=== PATIENT | male | born 1960 | race African-American/Black ===

== ENCOUNTER 2024-11-23 22:05 | Observation (INO) | payer MEDICARE, SELFPAY ==
--- NOTE | 2024-11-23 22:01 | ECG_ITS ---
APPROVED REPORT Exam: Resting ECG HR:40 bpm ECG Measurements Heart Rate 40 AXES DE 167 P 65 QRSd 170 QRS 268 QT 489 T 64 QTc 421 Conclusion SINUS BRADYCARDIA RIGHT AXIS DEVIATION [QRS AXIS > 100] RIGHT BUNDLE BRANCH BLOCK [120+ ms QRS DURATION, UPRIGHT V1, 40+ ms S IN I/aVL/V4/V5/V6] Sinus bradycardia with right bundle branch block with concave ST elevation in inferior leads Electronically signed by : DESMOND SANTIZO, 11/25/2024 21:35:12
[2024-11-23 22:05] VITALS: BP 92/52; PULSE 39; RESP 20; TEMP 36.4; O2SAT 99; BMI 19.8
--- NOTE | 2024-11-23 22:06 | CT_ITS ---
PROCEDURE INFORMATION: Exam: CT Head Without Contrast Exam date and time: 11/23/2024 10:22 PM Age: 64 years old Clinical indication: Injury or trauma; Fall; Additional info: Prev brain mass, bradycardic TECHNIQUE: Imaging protocol: Computed tomography of the head without contrast. Radiation optimization: All CT scans at this facility use at least one of these dose optimization techniques: automated exposure control; mA and/or kV adjustment per patient size (includes targeted exams where dose is matched to clinical indication); or iterative reconstruction. COMPARISON: CT CERVICAL SPINE WO CON 11/23/2024 10:22 PM FINDINGS: Brain: There is no evidence of intracranial hemorrhage. There are no areas of mass effect edema or midline shift. There is a small focal area encephalomalacia left parietal lobe adjacent to a craniotomy site secondary to old insult or prior surgery. There are no other focal abnormalities detected. Main of the cortical sulci are unremarkable. There are vague areas of decreased attenuation in the periventricular white matter consistent with chronic microvascular changes. Cerebral ventricles: Unremarkable for age. Paranasal sinuses: Visualized sinuses are unremarkable. No fluid levels. Mastoid air cells: Visualized mastoid air cells are well aerated. Bones: There is a craniotomy defect along the left parietal bone stabilized by multiple cortical plates.. No acute fracture. Soft tissues: Unremarkable. IMPRESSION: No acute intracranial abnormalities.
--- NOTE | 2024-11-23 22:07 | CT_ITS ---
PROCEDURE INFORMATION: Exam: CT Cervical Spine Without Contrast Exam date and time: 11/23/2024 10:22 PM Age: 64 years old Clinical indication: Injury or trauma; Additional info: Fall TECHNIQUE: Imaging protocol: Computed tomography of the cervical spine without contrast. Radiation optimization: All CT scans at this facility use at least one of these dose optimization techniques: automated exposure control; mA and/or kV adjustment per patient size (includes targeted exams where dose is matched to clinical indication); or iterative reconstruction. COMPARISON: CT HEAD/BRAIN WO CON 11/23/2024 10:22 PM FINDINGS: Bones: Cervical curvature and alignment is unremarkable. There are moderate multilevel degenerative changes mid-lower cervical spine with disc space narrowing, endplate sclerosis and osteophytic lipping resulting in moderate multilevel spinal and foraminal stenosis extending from C3-C4 through C6-C7. The left facet joints at C4-C5 are fused. No evidence of fracture, facet subluxation or traumatic spondylolisthesis. Lungs: Lung apices are normal. Soft tissues: No prevertebral or paraspinal soft tissue swelling. IMPRESSION: Multilevel degenerative changes mid lower cervical spine. No acute bony abnormalities..
--- NOTE | 2024-11-23 22:08 | ED_ITS ---
Discharge Plan Disposition Chief Complaint: Head Injury Referrals Follow up/Referrals: Provider,Referral, [Primary Care Provider] - See instructions Clinical Impressions Clinical Impression: Symptomatic bradycardia, Creatinine elevation, Syncope Print Language Print Language: Maori Discharge ED Provider: Jae Woodard General Adult HPI General Chief complaint: Head Injury Stated complaint: fall, LOC+ Time Seen by Provider: 11/23/24 22:07 History of Present Illness HPI narrative: Patient is a 64-year-old male with past medical history of intracranial mass status post resection over a year ago [facility], high blood pressure on multiple medications, drinks daily presents emergency department after passing out. Patient was witnessed in his kitchen slumping down onto the floor from standing without significant trauma. C-spine precautions initiated in the field. No seizure-like activity reported. Patient does not remember passing out. He has not had this happen before. And route his fingerstick was nonactionable and he was noticed to be bradycardic and was transported here for continued evaluation. Patient is not complaining of any acute complaints at this time. Related Data Allergies Allergy/AdvReac Type Severity Reaction Status Date / Time No Known Allergies Allergy Verified 11/23/24 22:12 [facility] Disclaimer: The information contained in this section may have been updated after the patient was seen, as this information can be updated by other users. Social History Smoking Status: Current every day smoker alcohol intake: current current occupational status: other Travel in the last 8 weeks: None ROS Obtained: Yes Systems reviewed as appropriate & no additional complaints except as documented Physical Exam General General appearance: alert and in no apparent distress Head Head exam: atraumatic and normocephalic Eye Eye exam: Present PERRL ENT ENT exam: Present mucous membranes moist Neck Neck exam: Present normal inspection; Absent tenderness Chest Chest inspection: Present normal inspection and symmetric chest wall rise Respiratory Respiratory exam: Present normal lung sounds bilaterally; Absent respiratory distress Cardiovascular Cardiovascular exam: Present normal rhythm and bradycardia Abdominal Exam Abdominal exam: Present soft; Absent tenderness Extremities Exam Extremities exam: Present normal inspection Neurological Exam Neurological exam: Present alert and CN II-XII intact; Absent motor sensory deficit Psychiatric Psychiatric exam: Present normal affect Skin Skin exam: Present warm and dry Medical Decision Making Medical Records Screening: Per USPSTF and CDC recommendations, given the prevalence of disease in our region, it is our hospital?s policy to screen for HIV and viral Hepatitis for all patients aged 18 and over and those with ongoing risk factors. Jaxon Inquiry Pt receiving controlled substance: No Vital Signs: 11/23/24 22:05 Temperature 97.6 F Temperature Source Oral Pulse Rate [Apical] 39 L Respiratory Rate 20 Blood Pressure [Right Arm] 92/52 L Blood Pressure Mean [Right Arm] 65 02 Sat by Pulse Oximetry 99 Oxygen Delivery Method Room Air Lab Data Lab Results 11/23/24 22:05: WBC 5.3, RBC 3.83 L, Hgb 12.5 L, Hct 36.4 L, MCV 95.0 H, MCH 32.6 H, MCHC 34.3, RDW 12.3, Plt Count 156, MPV 10.8 H, Neut % (Auto) 44.6, Lymph % (Auto) 44.0, [place] % (Auto) 7.4, Eos % (Auto) 3.0, Baso % (Auto) 0.8, Neut # (Auto) 2.4, Lymph # (Auto) 2.3, [place]eth # (Auto) 0.4, Eos # (Auto) 0.2, Baso # (Auto) 0.0, Sodium 138, Potassium 4.1, Chloride 98, Carbon Dioxide 28, Anion Gap 16.1 H, BUN 15, Creatinine 1.50 H, Estimated Creat Clear 47, Estimated GFR 47 L, Est GFR ( Amer) 57 L, Glucose 110 H, Calcium 8.4, Magnesium 1.8, Total Bilirubin 1.1, AST 37, ALT 19, Alkaline Phosphatase 47, Troponin I < 0.01, Total Protein 6.8, Albumin 4.2, Globulin 2.6, Albumin/Globulin Ratio 1.6, TSH 6.74 H, Free T4 1.29, Plasma/Serum Alcohol 149 H 11/23/24 22:05 11/23/24 22:05 Orders (Tests/Meds): ORDERS Category Date Time Status CT cervical spine wo con Stat Cat Scan 11/23/24 22:[address] head/brain wo con Stat Cat Scan 11/23/24 22:06 Completed CBC w/Auto Diff [Complete Blood Count Auto Diff] Stat Lab 11/23/24 22:05 Completed CMP [Comprehensive Metabolic Panel] Stat Lab 11/23/24 22:05 Completed Ethanol [Ethyl Alcohol] Stat Lab 11/23/24 22:05 Completed Free T4 (Free Thyroxine) Stat Lab 11/23/24 22:05 Completed MG [Magnesium] Stat Lab 11/23/24 22:05 Completed TSH [Thyroid Stimulating Hormone] Stat Lab 11/23/24 22:05 Completed Trop I [Troponin I] Stat Lab 11/23/24 22:05 Completed Troponin I Q3H Lab 11/24/24 01:15 Ordered Troponin I Q3H Lab 11/24/24 04:15 Ordered ECG Data Tracing #1: Independently interpreted by me rate is 40, rhythm is regular, axis is rightward deviated, sinus bradycardia with right bundle branch block, no excessive discordance. QTc 421. HEART Score History (anamnesis): Slightly suspicious ECG: Non-specific disturbance Age: >65 years Risk factors: 1-2 risk factors Troponin: </= normal limit HEART Score: 4 Medical Decision Narrative: In summary patient is 64-year-old male past medical history described above presents emergency department for evaluation of syncope and trauma. Patient is hemodynamically tenuous upon arrival, bradycardic, soft blood pressures 90s over 50s without true hypotension. Patient appears to be sinus bradycardia with a bundle branch block with intermittent PVCs on EKG at bedside. Patient will be placed on the ZOLL. No significant trauma based on history I suspect he has symptomatic bradycardia. For trauma noncontrasted CT scan of the head cervical spine will be obtained given that differential includes fracture and intracranial hemorrhage. Hematologic labs will be obtained. Crystalloid bolus administered after [id number] ultrasound at bedside shows normal ejection fraction (images were not saved to apartment archive therefore no note is warranted). Initial hematologic labs reviewed by me, no significant leukocytosis, no actionable anemia, elevated creatinine with unknown baseline that is being volume resuscitated initial troponin undetectably low, serum alcohol 149. Noncontrasted CT scan of the head informally visualized by me no acute large intracranial hemorrhage. Patient's medications were obtained, he is on propranolol, losartan, amlodipine. Patient's blood pressure and proved with crystalloid resuscitation. I do not think that patient has septic given that he has no fever no significant leukocytosis therefore broad-spectrum antibiotics were considered but will be deferred. I suspect that patient has symptomatic bradycardia and is on multiple antihypertensives and a beta-saeid which may require adjusting. Given this the case discussed with hospital medicine regarding management patient be admitted to their service for continued evaluation at this time. Critical Care Critical Care Time Critical Care Time: Yes Attestation: On 11/23/24, the high probability of a clinically significant, sudden or life threatening deterioration of the following system(s) required my full and direct attention, intervention and personal management. The time I documented below is in addition to time spent performing reported procedures but includes the following listed in this critical care notation. Total Time Total Critical Care Time: 35
--- NOTE | 2024-11-23 22:17 | PC.NURSE ---
Pt to CT scan via stretcher
[2024-11-23 22:21] LABS: Albumin Level 4.2 g/dl (3.5-5.0); Chloride 98 mmol/L (98-107); Sodium 138 mmol/L (136-145)
[2024-11-23 22:22] LABS: Potassium 4.1 mmoL/L (3.5-5.1)
[2024-11-23 22:23] LABS: Basophils % 0.8 % (0.1-2.0); Eosinophils # 0.2 K/mm3 (0.0-0.4); Hematocrit 36.4 % (42.0-52.0); Hemoglobin 12.5 g/dL (14.1-18.0); Lymphocytes # 2.3 K/mm3 (0.7-4.5); Mean Corpuscular HGB Conc 34.3 g/dL (31.8-35.4); Mean Corpuscular Hemoglobin 32.6 pg (27.0-31.2); Mean Platelet Volume 10.8 fl (7.4-10.4); Monocytes # 0.4 K/mm3 (0.1-1.0); Monocytes % 7.4 % (1.7-9.3); Neutrophils # 2.4 K/mm3 (1.8-7.8); Neutrophils % 44.6 % (37.0-80.0); Platelet Count 156 K/mm3 (142-424); Red Blood Count 3.83 M/mm3 (4.60-6.20); Red Cell Distribution Width 12.3 % (11.5-17.5); White Blood Count 5.3 K/mm3 (4.8-10.8)
[2024-11-23 22:24] LABS: Alanine Aminotransferase 19 U/L (12-78); Anion Gap 16.1 mEq/L (5-15); Aspartate Amino Transferase 37 U/L (17-59); Blood Urea Nitrogen 15 mg/dl (9-20); Carbon Dioxide 28 mmol/L (22.0-30.0); Creatinine Clearance Estimated 47 mL/min (50-200); Estimated Glomerular Filt Rate 47 ml/min (>60); Ethyl Alcohol 149 mg/dl (0-10); GFR (African American) 57 ML/MIN (>60)
[2024-11-23 22:25] LABS: Albumin/Globulin Ratio 1.6 (1.1-1.8); Alkaline Phosphatase 47 U/L (38-126); Bilirubin,Total 1.1 mg/dl (0.2-1.3); Calcium 8.4 mg/dl (8.4-10.2); Globulin 2.6 g/dL (1.3-3.2); Glucose 110 mg/dl (74-100); Magnesium 1.8 mg/dl (1.6-2.3); Total Protein,Serum 6.8 g/dl (6.3-8.2)
[2024-11-23 22:31] VITALS: BP 122/73; PULSE 42; RESP 14; O2SAT 95
[2024-11-23 22:43] LABS: Troponin I < 0.01 ng/ml (0.00-0.034)
[2024-11-23 22:49] LABS: Free T4 (Free Thyroxine) 1.29 ng/dl (0.78-2.19)
[2024-11-23 23:00] VITALS: BP 126/79; PULSE 58; RESP 14; O2SAT 96
[2024-11-23 23:01] LABS: Thyroid Stimulating Hormone 6.74 uIU/mL (0.465-4.68)
[2024-11-23 23:30] VITALS: BP 111/72; PULSE 49; RESP 14; O2SAT 94
[2024-11-24] VITALS (12 sets, daily range): BP systolic 107–169; BP diastolic 61–98; PULSE 50–78; RESP 16–20; TEMP 36.6–37.1; O2SAT 92–97; BMI 19.8; BMI 21.7
[2024-11-24] MEDS: LACTATED RINGERS 1000ML 1,000 ML 50 ML IV (00:42)
--- NOTE | 2024-11-24 00:53 | PC.NURSE ---
pt arrived to floor from ed via stretcher at 0035.
[2024-11-24 01:14] LABS: Troponin I < 0.01 ng/ml (0.00-0.034)
--- NOTE | 2024-11-24 01:30 | PC.NURSE ---
Unable to complete med rec. Meds not available, went home and pt not aware of his med regimen. Requested bring meds tomorrow
--- NOTE | 2024-11-24 04:36 | P.HP_ITS ---
History of Present Illness *Admission Date: 11/23/24 *Reason for visit:: Syncope *History of present illness: A 64-year-old male with a past medical history of benign intracranial mass status post resection over a year ago at the [facility] and hypertension managed with propranolol, losartan, and amlodipine, presents to the emergency department after an episode of syncope. The event occurred in his kitchen, where he was witnessed slumping to the floor from a standing position without any significant trauma or seizure-like activity. The patient does not recall the event and reports no prior similar episodes. C-spine precautions were initiated in the field. En route, he was found to be bradycardic with nonactionable fingerstick glucose. He denies chest pain, shortness of breath, dizziness, or any other acute complaints at the time of evaluation. Upon arrival, the patient was hemodynamically tenuous, with bradycardia, soft blood pressures in the 90s/50s, and no signs of true hypotension. Initial bedside EKG showed sinus bradycardia with a bundle branch block and intermittent premature ventricular contractions (PVCs). Thcnw-ej-uxie ultrasound demonstrated normal ejection fraction. Labs revealed no significant leukocytosis, mild anemia (Hgb 12.5), elevated crea tinine (1.50) with an estimated GFR of 47, and a serum alcohol level of 149. Troponin levels were undetectable, and TSH was elevated at 6.74, with a normal free T4 of 1.29. Noncontrasted CT scans of the head and cervical spine showed no acute intracranial hemorrhage or fractures. The patient?s presentation of syncope with bradycardia is likely multifactorial, potentially related to his multiple antihypertensives, including a beta-saeid. After crystalloid resuscitation, his blood pressure improved. He denies symptoms suggestive of sepsis or infection, and no antibiotics were initiated. Patient is a moderately poor historian but states he does follow-up regularly with PCP and low heart rate has been an issue in the past. Given his persistent bradycardia and history, admission to the hospitalist service was arranged for further evaluation and management. [facility] Disclaimer: The information contained in this section may have been updated after the patient was seen, as this information can be updated by other users. Medical History (Updated 11/24/24 @ 15:46 by Dariusz Schulte MD) FH: bilateral hip replacements Bradycardia Hypertension History of intracranial mass Family History Other No significant family history Social History Smoking Status: Current every day smoker alcohol intake: current current occupational status: other Travel in the last 8 weeks: None Have you lived/traveled outside [place] in past 30 days?: No Contact w/someone who lives/traveled outside US past 30 days?: No Exposure to someone with infectious disease in past 14 days?: No Do you have a fever (greater than 100.4 F or 38 C)?: No Have you tested positive for COVID-19: No Exposed to someone with COVID-19 in past 14 days?: No Do you have a sore throat?: No Do you have a cough?: No Do you have any weakness?: No Are you experiencing any nausea/vomitting?: No Do you have any diarrhea?: No Are you experiencing any unusual bleeding?: No Do you have any muscle aches/pain?: Yes Do you have any abdominal pain?: No Are you experiencing loss of taste or smell?: No Other Medical History Have you received the Flu Vaccine for this season: Yes Have you received the Pneumonia Vaccine: No Review of Systems Review of Systems Review of systems (narrative): 14 point review of systems negative outside [facility] Meds Home Medications and Allergies Home Medications ?Medication ?Instructions ?Recorded ?Confirmed ?Type amlodipine 10 mg tablet 10 mg PO DAILY 11/24/24 11/24/24 History losartan 100 mg tablet 100 mg PO DAILY 11/24/24 11/24/24 History propranolol 60 mg capsule,24 60 mg PO DAILY 11/24/24 11/24/24 History hr,extended release rosuvastatin 10 mg tablet 10 mg PO HS 11/24/24 11/24/24 History terazosin 10 mg capsule 10 mg PO DAILY 11/24/24 11/24/24 History valacyclovir 1 gram tablet 1,000 mg PO DAILY 11/24/24 11/24/24 History New Prescriptions to Start Prescriptions: Allergies Allergy/AdvReac Type Severity Reaction Status Date / Time No Known Allergies Allergy Verified 11/23/24 22:12 Exam Data for Last 24 hours Vital signs and Labs for Last 24 Hours: Temp Pulse Resp BP Pulse Ox O2 Del Method 98.2 F 60 16 125/76 95 Room Air 11/24/24 00:40 11/24/24 01:01 11/24/24 00:40 11/24/24 01:00 11/24/24 01:00 11/24/24 01:00 Laboratory Results - last 24 hr 11/23/24 22:05: WBC 5.3, RBC 3.83 L, Hgb 12.5 L, Hct 36.4 L, MCV 95.0 H, MCH 32.6 H, MCHC 34.3, RDW 12.3, Plt Count 156, MPV 10.8 H, Neut % (Auto) 44.6, Lymph % (Auto) 44.0, [place] % (Auto) 7.4, Eos % (Auto) 3.0, Baso % (Auto) 0.8, Neut # (Auto) 2.4, Lymph # (Auto) 2.3, Beaver # (Auto) 0.4, Eos # (Auto) 0.2, Baso # (Auto) 0.0, Sodium 138, Potassium 4.1, Chloride 98, Carbon Dioxide 28, Anion Gap 16.1 H, BUN 15, Creatinine 1.50 H, Estimated Creat Clear 47, Estimated GFR 47 L, Est GFR ( Amer) 57 L, Glucose 110 H, Calcium 8.4, Magnesium 1.8, Total Bilirubin 1.1, AST 37, ALT 19, Alkaline Phosphatase 47, Troponin I < 0.01, Total Protein 6.8, Albumin 4.2, Globulin 2.6, Albumin/Globulin Ratio 1.6, TSH 6.74 H, Free T4 1.29, Plasma/Serum Alcohol 149 H 11/24/24 00:45: PT 11.0, INR 1.00, Troponin I < 0.01 I & O for Last 24 hours: Intake & Output 11/21/24 11/22/24 11/23/24 11/24/24 23:59 23:59 23:59 23:59 Output Total 650 / 650 Balance -650 / -650 Weight 68.039 kg 74.435 kg Constitutional Constitutional: no acute distress *Routine HEENT Exam Head: Present normocephalic Eye: Present EOMI and PERRL ENT: Present mucous membranes moist *Routine Neck Exam Neck: Present supple; Absent lymphadenopathy *Routine Respiratory Exam Respiratory: Present CTA bilaterally *Routine Cardiovascular Exam Cardiovascular: Present RRR *Routine Abdominal Exam Abdominal: Present soft and normoactive bowel sounds; Absent tenderness *Routine Rectal Exam Rectal:: deferred *Routine Genitalia Exam Genitalia:: deferred *Routine Extremities Exam Extremities: Absent cyanosis, clubbing or edema *Routine Skin Exam Skin: Present warm; Absent rash *Routine Neurological Exam Neurological: Present alert and oriented X3 Assessment and Plan *Assessment and plan (1) Syncope: Status: Acute Qualifiers: Encounter type: initial encounter Category: Medical Code(s): R55 - Syncope and collapse (2) Creatinine elevation: Status: Acute Category: Medical (3) Symptomatic bradycardia: Status: Acute Category: Medical Code(s): R00.1 - Bradycardia, unspecified (4) Hypotension: Status: Acute Qualifiers: Hypotension type: unspecified hypotension type Qualified Code(s): I95.9 - Hypotension, unspecified Category: Medical Code(s): I95.9 - Hypotension, unspecified (5) CKD stage 3a, GFR 45-59 ml/min: Status: Acute Category: Medical Code(s): N18.31 - Chronic kidney disease, stage 3a (6) Hypertension: Status: Chronic Category: Medical Code(s): I10 - Essential (primary) hypertension Plan Medical decision making: This 64-year-old male with a history of benign intracranial mass resection and hypertension on multiple antihypertensive medications, including propranolol, losartan, and amlodipine, presents with a witnessed syncopal episode. His initial evaluation revealed symptomatic bradycardia with soft blood pressures, sinus bradycardia with a bundle branch block and PVCs on EKG, and an elevated serum alcohol level. Pnxbo-ls-ignt ultrasound showed normal ejection fraction, and noncontrasted CT imaging of the head and cervical spine showed no acute abnormalities. Lab results indicated mild anemia, elevated creatinine likely due to hypovolemia, and an elevated TSH without overt hypothyroid symptoms. The etiology of his syncope is likely multifactorial, with contributions from medication-induced bradycardia and possible volume depletion. Broad-spectrum antibiotics were deferred given the absence of infection markers. Admission is warranted for continued monitoring, evaluation, and optimization of his antihypertensive regimen to prevent further syncopal events. 1. Symptomatic Bradycardia (ICD-10: R00.1): * Admit for cardiac telemetry to monitor rhythm and assess for persistent bradycardia or other arrhythmias. * Hold propranolol and re-evaluate the patient?s need for beta-saeid therapy. * Monitor blood pressure and heart rate closely. Adjust antihypertensive therapy as needed. * Consider cardiology consultation to evaluate for potential pacemaker placement if bradycardia persists or becomes symptomatic. * Educate the patient on recognizing symptoms of bradycardia, including dizziness, fatigue, and syncope, and the importance of adherence to follow-up care. 2. Syncope (ICD-10: R55): * Likely multifactorial due to bradycardia, antihypertensive therapy, and possible mild volume depletion. * Continue monitoring for recurrence of syncope during admission. * Encourage adequate oral hydration to address possible mild hypovolemia. * orthostatic vital signs to rule out postural hypotension as a contributing factor. 3. Hypertension - On Multiple Antihypertensives (ICD-10: I10): * Hold propranolol and assess the need to adjust or simplify the patient?s antihypertensive regimen to prevent further bradycardia and hypotension. * Reassess blood pressure control during hospitalization and avoid overly aggressive management given his history of syncope. * Discuss medication adherence and follow-up with primary care for long-term blood pressure management. 4. Chronic Alcohol Use (ICD-10: F10.20): * Address elevated serum alcohol level (149) as a potential contributor to syncope via volume depletion or vasodilation. * Provide brief counseling on the risks of daily alcohol consumption and recommend moderation. * Screen for alcohol withdrawal symptoms during hospitalization and provide appropriate intervention if needed. * Urine drug screen 5. Chronic Kidney Disease (CKD) Stage 3a (ICD-10: N18.31):( Versus CHINO) * Elevated creatinine (1.50) with an estimated GFR of 47 suggests underlying CKD. Likely exacerbated by possible mild hypovolemia. * Ensure adequate hydration to avoid further renal compromise while carefully monitoring for fluid overload. * Repeat renal function labs to assess response to resuscitation. 6. Elevated TSH with Normal Free T4 (Subclinical Hypothyroidism) (ICD-10: E03.9): * TSH 6.74 with normal free T4 does not currently require treatment unless symptomatic. * Monitor TSH levels and reassess thyroid function as an outpatient. * Safety Clothing And Equipment Developer the patient on potential symptoms of hypothyroidism to monitor for. 7. History of Intracranial Mass Resection (ICD-10: Z85.841): * Noncontrasted head CT showed no evidence of acute intracranial hemorrhage or other complications. * No specific intervention is needed related to his history at this time. Additional Notes: * Social work consultation may be helpful for assessing follow-up care and medication compliance. * Educate the patient on the importance of regular medical follow-up to prevent future complications. * VTE prophylaxis with SCDs, hold further anticoagulation at this time to rule out trauma as mechanism of injury Rounded on patient after nurse practitioner. Personally examined and interviewed patient. Agree with exam findings and care plan as documented.
--- NOTE | 2024-11-24 04:51 | EXP.ENTCONS ---
History of Present Illness *Admission Date: 11/23/24 *History of present illness: A 64-year-old male with a past medical history of benign intracranial mass status post resection over a year ago at the [facility] and hypertension managed with propranolol, losartan, and amlodipine, presents to the emergency department after an episode of syncope. The event occurred in his kitchen, where he was witnessed slumping to the floor from a standing position without any significant trauma or seizure-like activity. The patient does not recall the event and reports no prior similar episodes. C-spine precautions were initiated in the field. En route, he was found to be bradycardic with nonactionable fingerstick glucose. He denies chest pain, shortness of breath, dizziness, or any other acute complaints at the time of evaluation. Upon arrival, the patient was hemodynamically tenuous, with bradycardia, soft blood pressures in the 90s/50s, and no signs of true hypotension. Initial bedside EKG showed sinus bradycardia with a bundle branch block and intermittent premature ventricular contractions (PVCs). [id number] ultrasound demonstrated normal ejection fraction. Labs revealed no significant leukocytosis, mild anemia (Hgb 12.5), elevated creatinine (1.50) with an estimated GFR of 47, and a serum alcohol level of 149. Troponin levels were undetectable, and TSH was elevated at 6.74, with a normal free T4 of 1.29. Noncontrasted CT scans of the head and cervical spine showed no acute intracranial hemorrhage or fractures. The patient?s presentation of syncope with bradycardia is likely multifactorial, potentially related to his multiple antihypertensives, including a beta-saeid. After crystalloid resuscitation, his blood pressure improved. He denies symptoms suggestive of sepsis or infection, and no antibiotics were initiated. Patient is a moderately poor historian but states he does follow-up regularly with PCP and low heart rate has been an issue in the past. Given his persistent bradycardia and history, admission to the hospitalist service was arranged for further evaluation and management. [facility] Disclaimer: The information contained in this section may have been updated after the patient was seen, as this information can be updated by other users. Medical History (Updated 11/24/24 @ 04:43 by Royce Mohr APRN) FH: bilateral hip replacements Bradycardia Hypertension History of intracranial mass Family History Other No significant family history Social History Smoking Status: Current every day smoker alcohol intake: current current occupational status: other Travel in the last 8 weeks: None Have you lived/traveled outside US in past 30 days?: No Contact w/someone who lives/traveled outside US past 30 days?: No Exposure to someone with infectious disease in past 14 days?: No Do you have a fever (greater than 100.4 F or 38 C)?: No Have you tested positive for COVID-19: No Exposed to someone with COVID-19 in past 14 days?: No Do you have a sore throat?: No Do you have a cough?: No Do you have any weakness?: No Are you experiencing any nausea/vomitting?: No Do you have any diarrhea?: No Are you experiencing any unusual bleeding?: No Do you have any muscle aches/pain?: Yes Do you have any abdominal pain?: No Are you experiencing loss of taste or smell?: No Meds Home Medications and Allergies New Prescriptions to Start Prescriptions: Allergies Allergy/AdvReac Type Severity Reaction Status Date / Time No Known Allergies Allergy Verified 11/23/24 22:12 Results Labs 11/24/24 04:40 11/24/24 04:40 Labs: Abnormal lab results 11/23/24 Range/Units 22:05 RBC 3.83 L (4.60-6.20) M/mm3 Hgb 12.5 L (14.1-18.0) g/dL Hct 36.4 L (42.0-52.0) % MCV 95.0 H (80-94) fl MCH 32.6 H (27.0-31.2) pg MPV 10.8 H (7.4-10.4) fl Anion Gap 16.1 H (5-15) mEq/L Creatinine 1.50 H (0.66-1.25) mg/dl Estimated GFR 47 L (>60) ml/min Est GFR ( Amer) 57 L (>60) ML/MIN Glucose 110 H (74-100) mg/dl TSH 6.74 H (0.465-4.68) uIU/mL Plasma/Serum Alcohol 149 H (0-10) mg/dl H & H 11/23/24 Range/Units 22:05 Hgb 12.5 L (14.1-18.0) g/dL Hct 36.4 L (42.0-52.0) % Coagulation 11/24/24 Range/Units 00:45 INR 1.00 (0.9-1.1) All other labs normal.
[2024-11-24 05:02] LABS: Basophils % 0.4 % (0.1-2.0); Eosinophils # 0.1 K/mm3 (0.0-0.4); Eosinophils % 0.7 % (0.1-12.0); Hematocrit 34.6 % (42.0-52.0); Hemoglobin 11.9 g/dL (14.1-18.0); Lymphocytes # 1.5 K/mm3 (0.7-4.5); Lymphocytes % 22.5 % (10-50); Mean Corpuscular HGB Conc 34.4 g/dL (31.8-35.4); Mean Corpuscular Hemoglobin 31.8 pg (27.0-31.2); Mean Corpuscular Volume 92.5 fl (80-94); Mean Platelet Volume 11.2 fl (7.4-10.4); Monocytes # 0.5 K/mm3 (0.1-1.0); Monocytes % 6.7 % (1.7-9.3); Neutrophils # 4.6 K/mm3 (1.8-7.8); Neutrophils % 69.1 % (37.0-80.0); Platelet Count 145 K/mm3 (142-424); Red Blood Count 3.74 M/mm3 (4.60-6.20); Red Cell Distribution Width 12.2 % (11.5-17.5); White Blood Count 6.7 K/mm3 (4.8-10.8)
[2024-11-24 05:27] LABS: Hemoglobin A1C 5.9 % (4.0-6.0)
[2024-11-24 05:47] LABS: Troponin I < 0.01 ng/ml (0.00-0.034)
[2024-11-24 05:49] LABS: Chloride 103 mmol/L (98-107)
[2024-11-24 05:50] LABS: Potassium 3.8 mmoL/L (3.5-5.1); Sodium 137 mmol/L (136-145)
[2024-11-24 05:52] LABS: Anion Gap 13.8 mEq/L (5-15); Blood Urea Nitrogen 15 mg/dl (9-20); Carbon Dioxide 24 mmol/L (22.0-30.0); Creatinine Clearance Estimated 70 mL/min (50-200); Estimated Glomerular Filt Rate 67 ml/min (>60); GFR (African American) 81 ML/MIN (>60)
[2024-11-24 05:53] LABS: Calcium 8.4 mg/dl (8.4-10.2); Chol/HDL Ratio 2.6 (1-3.5); Cholesterol 107 mg/dl (140-200); Glucose 132 mg/dl (74-100); HDL Cholesterol 41 mg/dl (40-60); Magnesium 1.7 mg/dl (1.6-2.3); Triglycerides 121 mg/dl (30-150); VLDL Cholesterol 24 mg/dL (0-40)
[2024-11-24 06:42] LABS: Vitamin B12 817 pg/mL (239-931)
[2024-11-24] MEDS: THIAMINE 100MG TABLET 100 MG PO (08:59)
[2024-11-24] MEDS: MAGNESIUM OXIDE 400MG TABLET 800 MG PO (08:59)
[2024-11-24] MEDS: FOLIC ACID 1MG TABLET 1 MG PO (08:59)
--- NOTE | 2024-11-24 14:06 | PC.NURSE ---
Aox 4, up with assistance times one, bed alarm active, 90's on RA, 18g R AC SL, echo in am, consult cardiology, cardiac diet.
--- NOTE | 2024-11-24 15:47 | EXP.ACUTE.PN ---
Subjective *Date: 11/24/24 *Time: 18:13 Interval history: Patient feeling little better today. No longer dizzy. Heart rate remains in the 50s. Denies any chest pain or shortness of breath. Tolerating p.o. intake. Stable on room air Medical Exam Vital signs and Labs for Last 24 Hours: Vital Signs Temp Pulse Pulse Pulse Pulse Pulse Resp 11/24/24 14:16 11/24/24 12:17 11/24/24 12:00 70 11/24/24 11:52 98 F 64 17 11/24/24 10:29 11/24/24 08:33 11/24/24 08:00 70 11/24/24 08:00 63 62 78 11/24/24 08:00 11/24/24 06:55 11/24/24 05:22 56 L 11/24/24 05:00 11/24/24 04:00 98.4 F 75 16 11/24/24 03:00 11/24/24 01:01 60 11/24/24 01:00 64 50 L 70 11/24/24 01:00 11/24/24 00:40 64 16 11/24/24 00:40 98.2 F 57 L 20 11/24/24 00:08 57 L 20 11/23/24 23:30 49 L 14 11/23/24 23:00 58 L 14 11/23/24 22:31 42 L 14 11/23/24 22:05 97.6 F 39 L 20 BP BP BP BP BP Pulse Ox O2 Del Method 11/24/24 14:16 Room Air 11/24/24 12:17 Room Air 11/24/24 12:00 11/24/24 11:52 120/75 94 L 11/24/24 10:29 Room Air 11/24/24 08:33 Room Air 11/24/24 08:00 11/24/24 08:00 118/61 124/72 124/75 11/24/24 08:00 Room Air 11/24/24 06:55 Room Air 11/24/24 05:22 11/24/24 05:00 Room Air 11/24/24 04:00 129/70 92 L Room Air 11/24/24 03:00 Room Air 11/24/24 01:01 11/24/24 01:00 125/76 142/76 H 131/74 11/24/24 01:00 95 Room Air 11/24/24 00:40 125/76 95 Room Air 11/24/24 00:40 107/69 L Room Air 11/24/24 00:08 107/69 L 96 Room Air 11/23/24 23:30 111/72 94 L 11/23/24 23:00 126/79 96 11/23/24 22:31 122/73 95 11/23/24 22:05 92/52 L 99 Room Air Intake and Output 11/23/24 11/24/24 11/24/24 23:59 07:59 15:59 Intake Total 480 / 480 Output Total 650 / 1650 1000 / 1650 Balance -650 / -1170 -520 / -1170 Intake: Intake, Oral Amount 480 / 480 Output: Output, Urine Amount 650 / 1650 1000 / 1650 Other: Number of Unmeasured Voids 0 Weight 68.039 kg 74.435 kg Patient Weight 11/24/24 23:59 Weight 74.435 kg Laboratory Results - last 24 hr 11/23/24 22:05: WBC 5.3, RBC 3.83 L, Hgb 12.5 L, Hct 36.4 L, MCV 95.0 H, MCH 32.6 H, MCHC 34.3, RDW 12.3, Plt Count 156, MPV 10.8 H, Neut % (Auto) 44.6, Lymph % (Auto) 44.0, [place] % (Auto) 7.4, Eos % (Auto) 3.0, Baso % (Auto) 0.8, Neut # (Auto) 2.4, Lymph # (Auto) 2.3, [place] # (Auto) 0.4, Eos # (Auto) 0.2, Baso # (Auto) 0.0, Sodium 138, Potassium 4.1, Chloride 98, Carbon Dioxide 28, Anion Gap 16.1 H, BUN 15, Creatinine 1.50 H, Estimated Creat Clear 47, Estimated GFR 47 L, Est GFR ( Amer) 57 L, Glucose 110 H, Calcium 8.4, Magnesium 1.8, Total Bilirubin 1.1, AST 37, ALT 19, Alkaline Phosphatase 47, Troponin I < 0.01, Total Protein 6.8, Albumin 4.2, Globulin 2.6, Albumin/Globulin Ratio 1.6, TSH 6.74 H, Free T4 1.29, Plasma/Serum Alcohol 149 H 11/24/24 00:45: PT 11.0, INR 1.00, Troponin I < 0.01 11/24/24 04:40: WBC 6.7 D, RBC 3.74 L, Hgb 11.9 L, Hct 34.6 L, MCV 92.5, MCH 31.8 H, MCHC 34.4, RDW 12.2, Plt Count 145, MPV 11.2 H, Neut % (Auto) 69.1, Lymph % (Auto) 22.5, [place] % (Auto) 6.7, Eos % (Auto) 0.7, Baso % (Auto) 0.4, Neut # (Auto) 4.6, Lymph # (Auto) 1.5, [place] # (Auto) 0.5, Eos # (Auto) 0.1, Baso # (Auto) 0.0, Sodium 137, Potassium 3.8, Chloride 103, Carbon Dioxide 24, Anion Gap 13.8, BUN 15, Creatinine 1.10 D, Estimated Creat Clear 70, Estimated GFR 67, Est GFR ( Amer) 81 D, Glucose 132 H, Hemoglobin A1c 5.9, Calcium 8.4, Magnesium 1.7, Troponin I < 0.01, Triglycerides 121, Cholesterol 107 L, LDL Cholesterol Direct 38.60 L, VLDL Cholesterol 24, HDL Cholesterol 41, Cholesterol/HDL Ratio 2.6, Vitamin B12 817 I & O for Labs for Last 24 Hours: Intake & Output 11/21/24 11/22/24 11/23/24 11/24/24 23:59 23:59 23:59 23:59 Intake Total 480 / 480 Output Total 1650 / 1650 Balance -1170 / -1170 Weight 68.039 kg 74.435 kg Constitutional: Present no acute distress, average body habitus, chronically ill appearing and cooperative Head: Present atraumatic and normocephalic ENT: Present normal exam Respiratory: Present normal respiratory effort; Absent rhonchi, wheezes or crackles Cardiac: Present Reg Rate and Rhythm GI: Present soft and normal bowel sounds; Absent distention or tenderness Extremities: Present normal inspection and full ROM Skin: Present intact; Absent erythema Neuro: Present Grossly Intact, alert, awake, oriented x 3 and moves all extremities Assessment and Plan *Assessment and plan (1) Syncope: Status: Acute Qualifiers: Encounter type: initial encounter Category: Medical Code(s): R55 - Syncope and collapse (2) Creatinine elevation: Status: Acute Category: Medical (3) Symptomatic bradycardia: Status: Acute Category: Medical Code(s): R00.1 - Bradycardia, unspecified (4) Hypotension: Status: Acute Qualifiers: Hypotension type: unspecified hypotension type Qualified Code(s): I95.9 - Hypotension, unspecified Category: Medical Code(s): I95.9 - Hypotension, unspecified (5) CKD stage 3a, GFR 45-59 ml/min: Status: Acute Category: Medical Code(s): N18.31 - Chronic kidney disease, stage 3a (6) Hypertension: Status: Chronic Category: Medical Code(s): I10 - Essential (primary) hypertension Plan This 64-year-old male with a history of benign intracranial mass resection and hypertension on multiple antihypertensive medications, including propranolol, losartan, and amlodipine, presents with a witnessed syncopal episode. His initial evaluation revealed symptomatic bradycardia with soft blood pressures, sinus bradycardia with a bundle branch block and PVCs on EKG, and an elevated serum alcohol level. [id number] ultrasound showed normal ejection fraction, and noncontrasted CT imaging of the head and cervical spine showed no acute abnormalities. Lab results indicated mild anemia, elevated creatinine likely due to hypovolemia, and an elevated TSH without overt hypothyroid symptoms. The etiology of his syncope is likely multifactorial, with contributions from medication-induced bradycardia and possible volume depletion. Broad-spectrum antibiotics were deferred given the absence of infection markers. Admission is warranted for continued monitoring, evaluation, and optimization of his antihypertensive regimen to prevent further syncopal events. Plan for cardiology to see patient in the morning. Problems addressed as follows: Symptomatic Bradycardia Hypertension Syncope Hyperlipidemia -Patient's blood pressure doing well. Holding blood pressure meds this morning as he is normotensive. Remains bradycardic with heart rate in the 50s. Holding beta-saeid. Will resume irbesartan as formulary conversion at 150 mg tonight if blood pressure increases above 140/90. -Holding amlodipine 10 mg daily - Resume Crestor 10 mg nightly -Holding terazosin due to blood pressure impact -Echocardiogram ordered for the morning -Patient reports previously wearing Holter monitor with no events -White count normal at 6.7, hemoglobin 11.9. Chronic Alcohol Use -Alcohol level elevated to 140 on presentation. Suspect this is complicating factor with his syncope. Chronic Kidney Disease (CKD) Stage 3a -Creatinine 1.1 on presentation, BUN 15. Appears to be at his baseline. Potassium 3.8. Repeat CBC, CMP, magnesium ordered for the morning. Caution with nephrotoxins. Elevated TSH with Normal Free T4 (Subclinical Hypothyroidism) -TSH 6.74. Will initiate levothyroxine 25 mcg daily. Could be an underlying etiology of his bradycardia. History of Intracranial Mass Resection (ICD-10: Z85.841): - noncontrasted head CT showed no evidence of acute intracranial hemorrhage or other complications. - No specific intervention is needed related to his history at this time. PT and OT ordered to evaluate patient in the morning. Full code Cardiac diet
[2024-11-24] MEDS: MULTIVITAMIN TABLET 1 EACH PO (16:47)
[2024-11-24] MEDS: IRBESARTAN 150MG TAB 150 MG PO (20:37)
[2024-11-25] VITALS (9 sets, daily range): BP systolic 147–165; BP diastolic 72–95; PULSE 38–80; RESP 16–18; TEMP 36.7–36.9; O2SAT 95–98; BMI 21.4
--- NOTE | 2024-11-25 00:16 | CA_ITS ---
APPROVED REPORT EXAM: Comprehensive 2D, Doppler, and color-flow Echocardiogram Digital Marketing Assistant: Annie Terry RDCS Ht: 6 ft 1 in Wt: 150lbs BSA: 1.90 BP: 62/52 mmHg Indications: BRADYCARDIA,SYNCOPE BUBBLE STUDY DONE M-Mode Dimensions RVDd 2.74 cm (0.9-2.6) LA Diam 2.97 cm (1.9-4.0) LVDd 5.10 cm (3.5-5.7) LVDs 3.44 cm (3.5-5.7) IVSd 1.15 cm (0.6-1.1) PWd 1.26 cm (0.6-1.1) EF (Teich) 60.60% FS 32.50% EDV (Teich) 123.80 mL ESV (Teich) 48.80 mL LV Diastology E Decel Time 307 (160-240 msec) E/A Ratio 1.0 Mitral Valve MV E Max Jonathan. 58.0 (40-130 cm/s) MV A Velocity 60.0 (40-130 cm/s) E/A Ratio 0.98 MV PHT 90.0 ms Left Ventricle The left ventricle is normal size. The left ventricular systolic function is normal. The left ventricular ejection fraction is within the normal range. There is increased LV wall thickness. There is normal LV segmental wall motion. The left ventricular diastolic function is normal. LVEF is 60%. Right Ventricle Right ventricle is moderately dilated. Right ventricle is mildly hypokinetic. Atria The left atrium size is normal. The right atrium size is normal. There is a trabeculated echodensity at the roof of the right atrium, this likely represents Chiari network, but other etiologies cannot be entirely ruled out. The interatrial septum is aneurysmal. Color Doppler demonstrates positive left to right interatrial shunt. Agitated saline administration demonstrates presence interatrial shunt. Aortic Valve The aortic valve is mildly thickened. There is no aortic valvular stenosis. No aortic regurgitation is present. Mitral Valve The mitral valve is normal in structure. No evidence of mitral valve stenosis. Trace mitral regurgitation. Tricuspid Valve Tricuspid valve is grossly normal in structure and function. Trace tricuspid regurgitation. There is insufficient TR jet to estimate RVSP. Pulmonic Valve The pulmonary valve is normal in structure. Trace pulmonic regurgitation. Great Vessels The aortic root is normal in size. The pulmonary artery is normal. The ascending aorta is not well-visualized. Pericardium There is no pericardial effusion. Other Information Study Quality: Fair Conclusion Normal LV systolic function. Moderate RV dilation with mild reduction in RV function. There is a trabeculated echodensity at the roof of the right atrium, this likely represents Chiari network, but other etiologies cannot be entirely ruled out. Aneurysmal interatrial septum. Color Doppler demonstrates positive left to right interatrial shunt. Agitated saline administration demonstrates presence interatrial shunt. No significant valvular stenosis or regurgitation. In the setting of presence of interatrial shunt and RV dysfunction, further evaluation with ARIANA and cardiac MRI (cardiomyopathy protocol) is suggested on an outpatient basis. Electronically signed by : Jennifer Mooney MD 11/25/2024 10:59:22
--- NOTE | 2024-11-25 01:38 | ECG_ITS ---
APPROVED REPORT Exam: Resting ECG HR:54 bpm ECG Measurements Heart Rate 54 AXES MT 164 P 85 QRSd 155 QRS 263 QT 391 T 72 QTc 377 Conclusion SINUS BRADYCARDIA WITH FREQUENT VENTRICULAR PREMATURE COMPLEXES RIGHT BUNDLE BRANCH BLOCK [120+ ms QRS DURATION, UPRIGHT V1, 40+ ms S IN I/aVL/V4/V5/V6] LEFT POSTERIOR FASCICULAR BLOCK [QRS AXIS > 109, INFERIOR Q] ABNORMAL ECG UNCONFIRMED REPORT Electronically signed by : Mesfin Quiroz MD 11/25/2024 08:58:28
--- NOTE | 2024-11-25 04:05 | PC.NURSE ---
Pt is A/O X 4. He has denied dizziness, pain or SOA throughout shift. Pt tolerating diet . Pt remains on telemetry with continued bradycardia. EKG done which showed pt in Atrial Bigeminy , BBB with occasional PVCs. Yaneth Mohr NP aware. Pt remained asymptomatic. Plans for ECHO on 11/25 Voiding well , LBM on 11/24
[2024-11-25 07:30] LABS: Basophils % 0.5 % (0.1-2.0); Eosinophils # 0.2 K/mm3 (0.0-0.4); Eosinophils % 2.6 % (0.1-12.0); Hematocrit 37.7 % (42.0-52.0); Hemoglobin 13.1 g/dL (14.1-18.0); Lymphocytes # 1.9 K/mm3 (0.7-4.5); Lymphocytes % 30.5 % (10-50); Mean Corpuscular HGB Conc 34.7 g/dL (31.8-35.4); Mean Corpuscular Hemoglobin 31.9 pg (27.0-31.2); Mean Corpuscular Volume 91.7 fl (80-94); Mean Platelet Volume 10.7 fl (7.4-10.4); Monocytes # 0.6 K/mm3 (0.1-1.0); Monocytes % 10.3 % (1.7-9.3); Neutrophils # 3.4 K/mm3 (1.8-7.8); Neutrophils % 55.9 % (37.0-80.0); Platelet Count 142 K/mm3 (142-424); Red Blood Count 4.11 M/mm3 (4.60-6.20); Red Cell Distribution Width 12.2 % (11.5-17.5); White Blood Count 6.1 K/mm3 (4.8-10.8)
[2024-11-25 07:47] LABS: Chloride 102 mmol/L (98-107); Potassium 4.1 mmoL/L (3.5-5.1); Sodium 137 mmol/L (136-145)
[2024-11-25 07:50] LABS: Anion Gap 11.1 mEq/L (5-15); Blood Urea Nitrogen 12 mg/dl (9-20); Carbon Dioxide 28 mmol/L (22.0-30.0); Creatinine Clearance Estimated 75 mL/min (50-200); Estimated Glomerular Filt Rate 97 ml/min (>60); GFR (African American) 117 ML/MIN (>60)
[2024-11-25 07:51] LABS: Calcium 8.5 mg/dl (8.4-10.2); Glucose 100 mg/dl (74-100)
[2024-11-25] MEDS: MAGNESIUM OXIDE 400MG TABLET 800 MG PO (08:52)
[2024-11-25] MEDS: LEVOTHYROXINE 25MCG (0.025MG) TAB 25 MCG PO (08:52)
[2024-11-25] MEDS: FOLIC ACID 1MG TABLET 1 MG PO (08:52)
[2024-11-25] MEDS: THIAMINE 100MG TABLET 100 MG PO (08:52)
--- NOTE | 2024-11-25 09:47 | EXP.CARD.CON ---
History of Present Illness History of Present Illness Consult date: 11/25/24 Requesting physician: Dariusz Schulte Chief complaint: Syncope, recurrent Additional Medical History:: 1. Recurrent syncope of unknown etiology -3 episodes over several years (Hospitalized in [facility] and now [facility]) 2. abnormal EKG with RBBB 3. Hypertension 4. Benign brain tumor removed 09/2023. [facility] [place] 5. Poor historian History of present illness: 64 yr old black male admitted through the ER with syncope. He relates being at a [employer] with family and friends having a good time. He had eaten and had some beer and shots of liquor and was dancing when the next thing he recalls is people telling him to wake up. He did lose control of his bladder but not bowels. He was seen in the ER and started on IV fluids due to soft BP. Non-contrast CT of head and spine showed no acute abnormalities or fractures. Abnormal EKG with RBBB and bradycardia with PVC's. Admitted for further evaluation with BP meds held. Cardiology consulted for evaluation. Troponins normal. No recurrent episodes of syncope since admission. Pt relates two other episodes of syncope years ago in both [place] and [place] without etiology. Offered loop recorder in past but never implanted. [facility] Disclaimer: The information contained in this section may have been updated after the patient was seen, as this information can be updated by other users. Medical History (Updated 11/25/24 @ 09:59 by MYA Self) FH: bilateral hip replacements Bradycardia Hypertension History of intracranial mass Family History Other No significant family history Social History Smoking Status: Current every day smoker alcohol intake: current current occupational status: other Travel in the last 8 weeks: None Have you lived/traveled outside US in past 30 days?: No Contact w/someone who lives/traveled outside US past 30 days?: No Exposure to someone with infectious disease in past 14 days?: No Do you have a fever (greater than 100.4 F or 38 C)?: No Have you tested positive for COVID-19: No Exposed to someone with COVID-19 in past 14 days?: No Do you have a sore throat?: No Do you have a cough?: No Do you have any weakness?: No Are you experiencing any nausea/vomitting?: No Do you have any diarrhea?: No Are you experiencing any unusual bleeding?: No Do you have any muscle aches/pain?: Yes Do you have any abdominal pain?: No Are you experiencing loss of taste or smell?: No Review of Systems Review of Systems Review of systems:: pertinent systems reviewed and negative unless documented below *Cardiovascular Cardiovascular: Denies chest pain *Respiratory Respiratory: Denies cough *Gastrointestinal Gastrointestinal: Denies diarrhea and Denies vomiting Exam Data for Last 24 hours Vital signs and Labs for Last 24 Hours: Temp Pulse Resp BP Pulse Ox O2 Del Method 98.1 F 52 L 16 159/76 H 95 Room Air 11/25/24 08:00 11/25/24 08:00 11/25/24 08:00 11/25/24 08:00 11/25/24 08:00 11/25/24 08:00 Laboratory Results - last 24 hr 11/25/24 07:16: WBC 6.1, RBC 4.11 L, Hgb 13.1 L, Hct 37.7 L, MCV 91.7, MCH 31.9 H, MCHC 34.7, RDW 12.2, Plt Count 142, MPV 10.7 H, Neut % (Auto) 55.9, Lymph % (Auto) 30.5, [place] % (Auto) 10.3 H, Eos % (Auto) 2.6, Baso % (Auto) 0.5, Neut # (Auto) 3.4, Lymph # (Auto) 1.9, [place] # (Auto) 0.6, Eos # (Auto) 0.2, Baso # (Auto) 0.0, Sodium 137, Potassium 4.1, Chloride 102, Carbon Dioxide 28, Anion Gap 11.1, BUN 12, Creatinine 0.80 D, Estimated Creat Clear 75, Estimated GFR 97, Est GFR ( Amer) 117 D, Glucose 100, Calcium 8.5 I & O for Last 24 hours: Intake & Output 11/22/24 11/23/24 11/24/24 11/25/24 11:59 11:59 11:59 11:59 Intake Total 480 / 480 1200 / 1200 Output Total 1150 / 1150 2074 Balance -670 / -670 -875 / -875 Weight 164 lb 1.617 oz 161 lb 12.8 oz Constitutional Constitutional: no acute distress *Routine Respiratory Exam Respiratory: Present CTA bilaterally; Absent rales or wheezes *Routine Cardiovascular Exam Cardiovascular: Present RRR; Absent murmur, gallop or rubs *Routine Extremities Exam Extremities: Absent edema *Routine Neurological Exam Neurological: Present alert, oriented X3 and CN II-XII intact Meds Home Medications and Allergies Home Medications ?Medication ?Instructions ?Recorded ?Confirmed ?Type amlodipine 10 mg tablet 10 mg PO DAILY 11/24/24 11/24/24 History losartan 100 mg tablet 100 mg PO DAILY 11/24/24 11/24/24 History propranolol 60 mg capsule,24 60 mg PO DAILY 11/24/24 11/24/24 History hr,extended release rosuvastatin 10 mg tablet 10 mg PO HS 11/24/24 11/24/24 History terazosin 10 mg capsule 10 mg PO DAILY 11/24/24 11/24/24 History valacyclovir 1 gram tablet 1,000 mg PO DAILY 11/24/24 11/24/24 History New Prescriptions to Start Prescriptions: Allergies Allergy/AdvReac Type Severity Reaction Status Date / Time No Known Allergies Allergy Verified 11/23/24 22:12 Assessment and Plan *Assessment and plan (1) Syncope: Status: Acute Qualifiers: Syncope type: unspecified Qualified Code(s): R55 - Syncope and collapse Category: Medical Code(s): R55 - Syncope and collapse (2) Symptomatic bradycardia: Status: Acute Category: Medical Code(s): R00.1 - Bradycardia, unspecified (3) Hypotension: Status: Acute Qualifiers: Hypotension type: unspecified hypotension type Qualified Code(s): I95.9 - Hypotension, unspecified Category: Medical Code(s): I95.9 - Hypotension, unspecified (4) CKD stage 3a, GFR 45-59 ml/min: Status: Acute Category: Medical Code(s): N18.31 - Chronic kidney disease, stage 3a (5) Creatinine elevation: Status: Acute Category: Medical Plan 1. Syncope, recurrent -CT of head, non-contrast, unremarkable except changes related to prior surgery -bradycardia, likely medication related. Improved with holding propranolol. -dehydration, likely due to decreased free water intake with alcohol use -troponins normal -low BP, related to 3 BP meds -bifascicular block on EKG (RBBB, LPFB) 2. History of Hypertension -on 3 meds as outpatient, holding propranolol -resume norvasc 3. Abnormal EKG with RBBB and LPFB -PVC's noted on telemetry -nocturnal bradycardia noted overnight 4. Alcohol use, chronic -recommend minimizing use 5. Acute Kidney injury -resolved with IV fluids 6. Hypothyroidism -on replacement 7. Tobacco use -cessation recommended 8. History of brain surgery, 09/2023 Continue to monitor on telemetry. Baseline EKG shows sinus with RBBB with LPFB but no evidence of higher degree arrhythmias at this time. Will need either 30 day event monitor at discharge or consideration of Loop recorder. Echo shows normal LVEF and no significant valve disease. However, he does have moderately dilated RV with reduced function. Also, he has positive bubble study. Will need outpatient ARIANA and cardiac MRI to decide if closure of shunt is needed. Ambulate and monitor rhythm. Attempting to obtain records from [facility] stay about 2021. Reportedly had an extensive cardiac workup at that time by Dr. Cisneros. If no record of cardiac cath, then would plan right and left heart cath prior to discharge.
--- NOTE | 2024-11-25 10:00 | HMH.PTEV ---
Physical Therapy Evaluation Rehab PT IP Evaluation Start: 11/24/24 18:12 Freq: ONCE Status: Active Protocol: Document 11/25/24 09:56 [facility] (Rec: 11/25/24 10:00 [facility] [id number]) Subjective/History History History Per H&P: This 64-year-old male with a history of benign intracranial mass resection and hypertension on multiple antihypertensive medications, including propranolol, losartan, and amlodipine, presents with a witnessed syncopal episode. His initial evaluation revealed symptomatic bradycardia with soft blood pressures, sinus bradycardia with a bundle branch block and PVCs on EKG, and an elevated serum alcohol level. Snzny-qj-nwuh ultrasound showed normal ejection fraction, and noncontrasted CT imaging of the head and cervical spine showed no acute abnormalities. Lab results indicated mild anemia, elevated creatinine likely due to hypovolemia, and an elevated TSH without overt hypothyroid symptoms. The etiology of his syncope is likely multifactorial, with contributions from medication- induced bradycardia and possible volume depletion. Broad-spectrum antibiotics were deferred given the absence of infection markers. Admission is warranted for continued monitoring, evaluation, and optimization of his antihypertensive regimen to prevent further syncopal events. Subjective Subjective Pt reports he lives at home with his spouse in a single- story home with 0 JOSE. Pt's spouse is retired and able to provide supervision if needed. Pt still drives. Pt is usually IND with all mobility using a SPC. New diagnosis of cancer in past 12 No months? Rehab PT IP Eval Objective Appearance Patient Behavior Appropriate,Cooperative Patient Orientation Person,Place,Situation Difficulty following instructions none Speech Pattern Clear Ambulation Patient Able to Ambulate Yes Ambulation Observation IP General Gait Pattern Observation Narrow Based Gait Ambulation Distance (feet) 30 Ambulation Assistive Device None Ambulation Ability Supervision/Stand by,Contact Guard/Hand Hold Balance Ability to Arise Able, uses arms to help Sitting Balance Steady, safe Standing Balance Steady, wide stance Dynamic Sitting Balance Ability Good Dynamic Standing Balance Ability Good Rehab PT IP prob,goals,plan Problems Date of Evaluation: 11/25/24 Rehab Potential Rehab Potential Innapropriate for Skilled Therapy Discharge Plan PT Discharge Plan Pt not appropriate for skilled acute care PT at this time d/ t pt?s mobility being at baseline. Eval Complexity Eval Charge Codes 06869 - Moderate Complexity PHYSICIAN CERTIFICATION: I certify the specified therapy services for Karlo Saucedoder are required, authorized, and reviewed every 30 days.
--- NOTE | 2024-11-25 10:08 | HMH.OTEV ---
OT Inpatient Evaluation Rehab OT IP Evaluation Start: 11/24/24 18:12 Freq: ONCE Status: Active Protocol: Document 11/25/24 10:05 [facility] (Rec: 11/25/24 10:08 [facility] [id number]) Rehab OT IP Assessment Subjective History Pt oriented x 3 on arrival. Pt agreeable to engage in therapy evaluation. Pt admitted on 11/23/24 due to syncope episode and bradycardia. History and physical: A 64-year-old male with a past medical history of benign intracranial mass status post resection over a year ago at the [facility] and hypertension managed with propranolol, losartan, and amlodipine, presents to the emergency department after an episode of syncope. The event occurred in his kitchen, where he was witnessed slumping to the floor from a standing position without any significant trauma or seizure- like activity. The patient does not recall the event and reports no prior similar episodes. C-spine precautions were initiated in the field. En route, he was found to be bradycardic with nonactionable fingerstick glucose. He denies chest pain, shortness of breath, dizziness, or any other acute complaints at the time of evaluation. Upon arrival, the patient was hemodynamically tenuous, with bradycardia, soft blood pressures in the 90s/50s, and no signs of true hypotension. Initial bedside EKG showed sinus bradycardia with a bundle branch block and intermittent premature ventricular contractions (PVCs ). [id number] ultrasound demonstrated normal ejection fraction. Labs revealed no significant leukocytosis, mild anemia (Hgb 12.5), elevated creatinine (1 .50) with an estimated GFR of 47, and a serum alcohol level of 149. Troponin levels were undetectable, and TSH was elevated at 6.74, with a normal free T4 of 1.29. Noncontrasted CT scans of the head and cervical spine showed no acute intracranial hemorrhage or fractures Subjective I just keep having episodes where my heart rate goes low. Prior to being in the hospital , pt lived at home with his . Pt claims normally he is independent with all ADLs and IADLs. He does use a cane during functional transfers when in public for safety. Pt also still drives. Objective Patient Orientation Person,Place,Birthday Right Upper Extremity Gross ROM WFL Left Upper Extremity Gross ROM WFL Bed Mobility bed mobility-scooting,bed mobility - supine/sit Assist Level Supervision/Stand by Transfer Training Sit/Stand Transfer Assist Level Supervision/Stand by Lower Body Dressing Ability Standby Assistance Performing Toilet Hygiene Ability Standby Assistance Overall Commode/Toilet Transfer Ability Standby Assistance Commode/Toilet Transfer Technique Sit to/from Ambulatory Rehab OT IP prob,goals,plan Problems Date of Evaluation: 11/25/24 Rehab Potential Rehab Potential Innapropriate for Skilled Therapy Discharge Plan OT Discharge Plan Pt appears to be at his baseline with functional transfers and ADL independence at this time. Pt can return home with once he is medically stable per physician . Eval Complexity Eval Charge Codes 53829 - Low Complexity PHYSICIAN CERTIFICATION: I certify the specified therapy services for Karlo Marcelino are required, authorized, and reviewed every 30 days.
[2024-11-25] MEDS: AMLODIPINE 5MG TABLET 5 MG PO (11:34)
[2024-11-25 13:55] LABS: Amphetamine/Metha Screen,Urine Negative ng/ml (<1000)
[2024-11-25 14:00] LABS: Phencyclidine Screen,Urine Negative ng/ml (<25)
[2024-11-25 14:02] LABS: Barbiturates Screen,Urine Negative ng/ml (<200); Benzodiazepines Screen,Urine Negative ng/ml (<200)
[2024-11-25 14:04] LABS: Cocaine Screen,Urine Negative ng/ml (<300); Methadone Screen,Urine Negative ng/ml (<300)
[2024-11-25 14:05] LABS: Opiate Screen,Urine Negative ng/ml (<300)
[2024-11-25 14:36] LABS: Cannabinoid Screen,Urine Positive ng/ml (<50)
[2024-11-25 15:11] LABS: Magnesium 1.6 mg/dl (1.6-2.3)
[2024-11-25] MEDS: MULTIVITAMIN TABLET 1 EACH PO (17:04)
--- NOTE | 2024-11-25 19:28 | P.PN_ITS ---
Subjective *Date: 11/25/24 *Time: 21:13 Interval history: Patient denies any chest pain. Stable on room air. Denies any acute events overnight however did have an episode concerning for bradycardia. Found to have frequent PVCs with delayed repole. Tolerating p.o. intake. Cardiology ev aluating today. No further dizziness or syncope Medical Exam Vital signs and Labs for Last 24 Hours: Vital Signs Temp Pulse Pulse Pulse Pulse Pulse Resp 11/25/24 18:29 11/25/24 17:00 11/25/24 16:39 71 11/25/24 16:38 56 L 11/25/24 16:37 54 L 11/25/24 16:00 80 11/25/24 15:00 11/25/24 13:00 11/25/24 12:00 50 L 11/25/24 12:00 98.0 F 57 L 18 11/25/24 11:00 11/25/24 09:00 11/25/24 08:00 11/25/24 08:00 98.1 F 52 L 16 11/25/24 06:51 11/25/24 05:00 11/25/24 04:00 38 L 11/25/24 04:00 98.1 F 50 L 18 11/25/24 03:00 11/25/24 01:00 11/25/24 00:00 57 L 11/25/24 00:00 98.0 F 60 16 11/24/24 23:00 11/24/24 21:00 11/24/24 21:00 55 L 56 L 64 11/24/24 20:00 50 L 11/24/24 20:00 11/24/24 20:00 98.7 F 55 L 16 BP BP BP BP BP Pulse Ox O2 Del Method 11/25/24 18:29 Room Air 11/25/24 17:00 Room Air 11/25/24 16:39 158/78 H 11/25/24 16:38 158/89 H 11/25/24 16:37 147/95 H 11/25/24 16:00 11/25/24 15:00 Room Air 11/25/24 13:00 Room Air 11/25/24 12:00 11/25/24 12:00 165/87 H 97 Room Air 11/25/24 11:00 Room Air 11/25/24 09:00 Room Air 11/25/24 08:00 Room Air 11/25/24 08:00 159/76 H 95 Room Air 11/25/24 06:51 Room Air 11/25/24 05:00 Room Air 11/25/24 04:00 11/25/24 04:00 153/72 H 98 Room Air 11/25/24 03:00 Room Air 11/25/24 01:00 Room Air 11/25/24 00:00 11/25/24 00:00 147/86 H 97 Room Air 11/24/24 23:00 Room Air 11/24/24 21:00 Room Air 11/24/24 21:00 160/74 H 169/91 H 164/98 H 11/24/24 20:00 11/24/24 20:00 97 Room Air 11/24/24 20:00 160/74 H 97 Room Air Intake and Output 11/25/24 11/25/24 11/25/24 07:59 15:59 23:59 Intake Total 720 / 960 240 / 960 Output Total 900 / 900 Balance -900 / 60 720 / 60 240 / 60 Intake: Intake, Oral Amount 720 / 960 240 / 960 Output: Output, Urine Amount 900 / 900 Other: Number of Unmeasured Voids 0 Weight 73.391 kg Patient Weight 11/25/24 23:59 Weight 73.391 kg Laboratory Results - last 24 hr 11/24/24 09:00: Urine Opiates Screen Negative, Urine Methadone Screen Negative, Ur Barbituates Screen Negative, Ur Phencyclidine Scrn Negative, Ur Amphetamines Screen Negative, U Benzodiazepines Scrn Negative, Urine Cocaine Screen Negative, U Marijuana (THC) Screen Positive H 11/25/24 07:15: Magnesium 1.6 11/25/24 07:16: WBC 6.1, RBC 4.11 L, Hgb 13.1 L, Hct 37.7 L, MCV 91.7, MCH 31.9 H, MCHC 34.7, RDW 12.2, Plt Count 142, MPV 10.7 H, Neut % (Auto) 55.9, Lymph % (Auto) 30.5, [place] % (Auto) 10.3 H, Eos % (Auto) 2.6, Baso % (Auto) 0.5, Neut # (Auto) 3.4, Lymph # (Auto) 1.9, [place] # (Auto) 0.6, Eos # (Auto) 0.2, Baso # (Auto) 0.0, Sodium 137, Potassium 4.1, Chloride 102, Carbon Dioxide 28, Anion Gap 11.1, BUN 12, Creatinine 0.80 D, Estimated Creat Clear 75, Estimated GFR 97, Est GFR ( Amer) 117 D, Glucose 100, Calcium 8.5 I & O for Labs for Last 24 Hours: Intake & Output 11/22/24 11/23/24 11/24/24 11/25/24 23:59 23:59 23:59 23:59 Intake Total 1440 / 1440 960 / 960 Output Total 2325 / 2325 900 / 900 Balance -885 / -885 Weight 68.039 kg 74.435 kg 73.391 kg Constitutional: Present no acute distress, average body habitus, chronically ill appearing and cooperative Head: Present atraumatic and normocephalic ENT: Present normal exam Respiratory: Present normal respiratory effort; Absent rhonchi, wheezes or crackles Cardiac: Present Reg Rate and Rhythm GI: Present soft and normal bowel sounds; Absent distention or tenderness Extremities: Present normal inspection and full ROM Skin: Present intact; Absent erythema Neuro: Present Grossly Intact, alert, awake, oriented x 3 and moves all extremities Assessment and Plan *Assessment and plan (1) Syncope: Status: Acute Qualifiers: Syncope type: unspecified Qualified Code(s): R55 - Syncope and collapse Category: Medical Code(s): R55 - Syncope and collapse (2) Creatinine elevation: Status: Acute Category: Medical (3) Symptomatic bradycardia: Status: Acute Category: Medical Code(s): R00.1 - Bradycardia, unspecified (4) Hypotension: Status: Acute Qualifiers: Hypotension type: unspecified hypotension type Qualified Code(s): I95.9 - Hypotension, unspecified Category: Medical Code(s): I95.9 - Hypotension, unspecified (5) CKD stage 3a, GFR 45-59 ml/min: Status: Acute Category: Medical Code(s): N18.31 - Chronic kidney disease, stage 3a (6) Hypertension: Status: Chronic Category: Medical Code(s): I10 - Essential (primary) hypertension Plan This 64-year-old male with a history of benign intracranial mass resection and hypertension on multiple antihypertensive medications, including propranolol, losartan, and amlodipine, presents with a witnessed syncopal episode. His initial evaluation revealed symptomatic bradycardia with soft blood pressures, sinus bradycardia with a bundle branch block and PVCs on EKG, and an elevated serum alcohol level. [id number]-kn-[id number] ultrasound showed normal ejection fraction, and noncontrasted CT imaging of the head and cervical spine showed no acute abno rmalities. Lab results indicated mild anemia, elevated creatinine likely due to hypovolemia, and an elevated TSH without overt hypothyroid symptoms. The etiology of his syncope is likely multifactorial, with contributions from medication-induced bradycardia and possible volume depletion. Broad-spectrum antibiotics were deferred given the absence of infection markers. Admission is warranted for continued monitoring, evaluation, and optimization of his antihypertensive regimen to prevent further syncopal events. Cardiology evaluated. Monitor overnight. Anticipate discharge tomorrow. Problems addressed as follows: Symptomatic Bradycardia Hypertension Syncope Hyperlipidemia -Patient's blood pressure doing well. Holding betablocker at this time, Will resume irbesartan as formulary conversion at 150 mg. -Holding amlodipine 10 mg daily - Resume Crestor 10 mg nightly - Discussed case with cardiology today, suspect his bradycardia is likely medication related. Has improved with holding propranolol. Syncope likely multifactorial. Does have bifascicular block on EKG with right bundle branch block and left posterior fascicular block. Recommend 30-day event monitor at discharge and consideration of loop recorder. Echo shows normal EF and no significant valvular disease. Has moderately dilated RV with reduced function. Does have positive bubble study. Will need outpatient ARIANA and cardiac MRI to evaluate if closure of shunt is needed. -Recommend monitoring overnight. -Holding terazosin due to blood pressure impact -White count remains normal at 6. Chronic Alcohol Use: Alcohol level elevated to 140 on presentation. Suspect this is complicating factor with his syncope. Chronic Kidney Disease (CKD) Stage 3a: normal with BUN 12, creatinine 0.8.. Repeat CBC, CMP, magnesium ordered for the morning. Caution with nephrotoxins. Elevated TSH with Normal Free T4 (Subclinical Hypothyroidism): TSH 6.74. continue levothyroxine 25 mcg daily. Could be an underlying etiology of his bradycardia. History of Intracranial Mass Resection (ICD-10: Z85.841): - noncontrasted head CT showed no evidence of acute intracranial hemorrhage or other complications. - No specific intervention is needed related to his history at this time. PT and OT ordered to evaluate patient in the morning. Full code Cardiac diet
[2024-11-25] MEDS: IRBESARTAN 150MG TAB 150 MG PO (20:24)
[2024-11-25] MEDS: ATORVASTATIN 40MG TABLET 40 MG PO (20:24)
[2024-11-26] VITALS (8 sets, daily range): BP systolic 143–158; BP diastolic 79–96; PULSE 50–70; RESP 16–18; TEMP 36.3–36.8; O2SAT 96–100; BMI 20.9
--- NOTE | 2024-11-26 04:42 | PC.NURSE ---
Pt A&OX4 and has tolerated room air. Lung sounds clear and bowel sounds active. He has denied any SOA or dizziness. He has remained sinus jeanna with BBB on tele. He has ambulated with standby assist. No complaints at this time, call light within reach.
[2024-11-26] MEDS: LEVOTHYROXINE 25MCG (0.025MG) TAB 25 MCG PO (06:24)
[2024-11-26 06:45] LABS: Basophils % 0.7 % (0.1-2.0); Eosinophils # 0.2 K/mm3 (0.0-0.4); Eosinophils % 3.3 % (0.1-12.0); Hematocrit 38.9 % (42.0-52.0); Hemoglobin 13.4 g/dL (14.1-18.0); Lymphocytes # 1.8 K/mm3 (0.7-4.5); Lymphocytes % 31.3 % (10-50); Mean Corpuscular HGB Conc 34.4 g/dL (31.8-35.4); Mean Corpuscular Hemoglobin 31.6 pg (27.0-31.2); Mean Corpuscular Volume 91.7 fl (80-94); Mean Platelet Volume 11.5 fl (7.4-10.4); Monocytes # 0.6 K/mm3 (0.1-1.0); Monocytes % 10.3 % (1.7-9.3); Neutrophils # 3.2 K/mm3 (1.8-7.8); Neutrophils % 53.9 % (37.0-80.0); Platelet Count 161 K/mm3 (142-424); Red Blood Count 4.24 M/mm3 (4.60-6.20); Red Cell Distribution Width 12.3 % (11.5-17.5); White Blood Count 5.8 K/mm3 (4.8-10.8)
[2024-11-26 07:01] LABS: Blood Urea Nitrogen 13 mg/dl (9-20); Calcium 8.7 mg/dl (8.4-10.2); Carbon Dioxide 27 mmol/L (22.0-30.0); Chloride 102 mmol/L (98-107); Creatinine Clearance Estimated 74 mL/min (50-200); Estimated Glomerular Filt Rate 113 ml/min (>60); GFR (African American) 137 ML/MIN (>60); Glucose 100 mg/dl (74-100); Sodium 137 mmol/L (136-145)
[2024-11-26] MEDS: THIAMINE 100MG TABLET 100 MG PO (08:39)
[2024-11-26] MEDS: FOLIC ACID 1MG TABLET 1 MG PO (08:39)
[2024-11-26] MEDS: MAGNESIUM OXIDE 400MG TABLET 800 MG PO (08:39)
[2024-11-26] MEDS: AMLODIPINE 5MG TABLET 5 MG PO (08:39)
[2024-11-26 09:50] LABS: Magnesium 1.7 mg/dl (1.6-2.3)
[2024-11-26] MEDS: MAGNESIUM SULFATE IN WATER 2 GM/50 ML PIGGYBACK IV ×2 (10:46→11:39)
--- NOTE | 2024-11-26 10:50 | EXP.CARD.PN ---
Subjective Subjective Date: 11/26/24 Time: 10:50 Principal diagnosis: Syncope Interval history: 64-year-old black male in bed in no acute distress. No complaints overnight. He was able to ambulate in the room in the hallway yesterday without any symptoms. Telemetry shows sinus rhythm in the 50s and 60s beats per minute range. Records obtained from 2020 regarding prior workup including cardiac catheter showed normal coronary arteries and a procainamide challenge that was negative for Brugada syndrome. Reportedly has had exercise-induced ventricular tachycardia for which he was placed on beta-saeid therapy. Exam Data for Last 24 hours Vital signs and Labs for Last 24 Hours: Temp Pulse Resp BP Pulse Ox O2 Del Method 98.2 F 60 16 150/80 H 97 Room Air 11/26/24 07:45 11/26/24 08:00 11/26/24 07:45 11/26/24 07:45 11/26/24 07:45 11/26/24 09:00 Laboratory Results - last 24 hr 11/24/24 09:00: Urine Opiates Screen Negative, Urine Methadone Screen Negative, Ur Barbituates Screen Negative, Ur Phencyclidine Scrn Negative, Ur Amphetamines Screen Negative, U Benzodiazepines Scrn Negative, Urine Cocaine Screen Negative, U Marijuana (THC) Screen Positive H 11/25/24 07:15: Magnesium 1.6 11/26/24 06:03: WBC 5.8, RBC 4.24 L, Hgb 13.4 L, Hct 38.9 L, MCV 91.7, MCH 31.6 H, MCHC 34.4, RDW 12.3, Plt Count 161, MPV 11.5 H, Neut % (Auto) 53.9, Lymph % (Auto) 31.3, [place] % (Auto) 10.3 H, Eos % (Auto) 3.3, Baso % (Auto) 0.7, Neut # (Auto) 3.2, Lymph # (Auto) 1.8, [place] # (Auto) 0.6, Eos # (Auto) 0.2, Baso # (Auto) 0.0, Sodium 137, Potassium 4.0, Chloride 102, Carbon Dioxide 27, Anion Gap 12.0, BUN 13, Creatinine 0.70, Estimated Creat Clear 74, Estimated GFR 113, Est GFR ( Amer) 137, Glucose 100, Calcium 8.7, Magnesium 1.7 I & O for Last 24 hours: Intake & Output 11/23/24 11/24/24 11/25/24 11/26/24 11:59 11:59 11:59 11:59 Intake Total 480 / 480 1200 / 1200 1270 / 1270 Output Total 1150 / 1150 2074 0 / 0 Balance -670 / -670 -875 / -875 1270 / 1270 Weight 164 lb 1.617 oz 161 lb 12.8 oz 158 lb 3.2 oz Constitutional Constitutional: no acute distress *Routine Respiratory Exam Respiratory: Present CTA bilaterally *Routine Cardiovascular Exam Cardiovascular: Present RRR and bradycardia Progress Note: A&P Assessment and plan (1) Syncope: Status: Acute (2) Creatinine elevation: Status: Acute (3) Symptomatic bradycardia: Status: Acute (4) Hypotension: Status: Acute (5) CKD stage 3a, GFR 45-59 ml/min: Status: Acute (6) Hypertension: Status: Chronic Assessment and Plan Assessment and Plan for All Diagnoses:: 1. Syncope, recurrent -CT of head, non-contrast, unremarkable except changes related to prior surgery -bradycardia, likely medication related. Improved with holding propranolol. -dehydration, likely due to decreased free water intake with alcohol use -troponins normal -low BP, related to 3 BP meds -bifascicular block on EKG (RBBB, LPFB) 2. History of Hypertension -on 3 meds as outpatient, holding propranolol -resume norvasc 3. Abnormal EKG with RBBB and LPFB -PVC's noted on telemetry -nocturnal bradycardia noted overnight 4. Alcohol use, chronic -recommend minimizing use 5. Acute Kidney injury -resolved with IV fluids 6. Hypothyroidism -on replacement 7. Tobacco use -cessation recommended 8. History of brain surgery, 09/2023, benign tumor 9. PFO noted on ARIANA in 2020 -Echo this admission shows [id number] shunt with RV enlargement and reduced RV function 10. History of exercise-induced nonsustained VT for which beta saeid therapy started, 2020. -LHC, 2020, normal coronaries -Procainamide challenge negative for Brugada, 2020 Stable for discharge from cardiology standpoint. Home med recs: Amlodipine 10 mg daily Atorvastatin 40 mg daily Irbesartan 150 mg daily Discontinue propranolol Follow-up in our office in 1 to 2 weeks with plans to discuss outpatient routine stress test, ARIANA and MRI for PFO with [id number] shunt and possible decision on having it closed due to right heart enlargement.
--- NOTE | 2024-11-26 15:51 | EXP.DC.SUM ---
General Admission date:: 11/26/24 Hospital Course Hospital Course Hospital Course: Karlo Marcelino is a 64-year-old male with a history of benign intracranial mass resection and hypertension on multiple antihypertensive medications, including propranolol, losartan, and amlodipine, presents with a witnessed syncopal episode. His initial evaluation revealed symptomatic bradycardia with soft blood pressures, sinus bradycardia with a bundle branch block and PVCs on EKG, and an elevated serum alcohol level. Iwffl-gr-yvup ultrasound showed normal ejection fraction, and noncontrasted CT imaging of the head and cervical spine showed no acute abnormalities. Lab results indicated mild anemia, elevated creatinine likely due to hypovolemia, and an elevated TSH without overt hypothyroid symptoms. The etiology of his syncope is likely multifactorial, with contributions from medication-induced bradycardia and possible volume depletion. Broad-spectrum antibiotics were deferred given the absence of infection markers. Admission is warranted for continued monitoring, evaluation, and optimization of his antihypertensive regimen to prevent further syncopal events. Cardiology evaluated. Monitor overnight. Anticipate discharge tomorrow. Problems addressed as follows: #Symptomatic Bradycardia #Hypertension #Syncope #Hyperlipidemia #PFO, [id number] shunt, enlarged right heart - Discussed case with cardiology, suspect his bradycardia is likely medication related. Has improved with holding propranolol, so it was discontinued. Syncope likely multifactorial. Does have bifascicular block on EKG with right bundle branch block and left posterior fascicular block. Recommend 30-day event monitor at discharge and consideration of loop recorder. Echo shows normal EF and no significant valvular disease. Has moderately dilated RV with reduced function. Does have positive bubble study. Will need outpatient [facility] and cardiac MRI to evaluate if closure of shunt is needed. ? Discontinue propranolol with improvement in symptoms. ? Continue losartan 100 mg, amlodipine 10 mg, terazosin. - Continue Crestor 10 mg nightly. ? Patient will follow-up with cardiology for further evaluation management, including discussing whether left or right sided shunting PFO needs to be surgically evaluated due to enlarged right heart. Chronic Alcohol Use: #Low folic acid ? Alcohol level elevated to 140 on presentation. Suspect this is complicating factor with his syncope. Symptoms improved over hospital course. ? Started folic acid 1 mg daily. Chronic Kidney Disease (CKD) Stage 3a: normal with BUN 12, creatinine 0.8. Elevated TSH with Normal Free T4 (Subclinical Hypothyroidism): TSH 6.74. continue levothyroxine 25 mcg daily. Recommend outpatient follow-up TFTs. History of Intracranial Mass Resection - noncontrasted head CT showed no evidence of acute intracranial hemorrhage or other complications. - No specific intervention is needed related to his history at this time. Total time spent on discharge: 32 minutes on chart review, counseling, documentation, and direct care with patient. Exam Data for Last 24 hours Vital signs and Labs for Last 24 Hours: Temp Pulse Resp BP Pulse Ox O2 Del Method 97.4 F L 60 18 158/96 H 100 Room Air 11/26/24 15:45 11/26/24 15:45 11/26/24 15:45 11/26/24 15:45 11/26/24 15:45 11/26/24 15:45 Laboratory Results - last 24 hr 11/26/24 06:03: WBC 5.8, RBC 4.24 L, Hgb 13.4 L, Hct 38.9 L, MCV 91.7, MCH 31.6 H, MCHC 34.4, RDW 12.3, Plt Count 161, MPV 11.5 H, Neut % (Auto) 53.9, Lymph % (Auto) 31.3, Alfalfa % (Auto) 10.3 H, Eos % (Auto) 3.3, Baso % (Auto) 0.7, Neut # (Auto) 3.2, Lymph # (Auto) 1.8, Alfalfa # (Auto) 0.6, Eos # (Auto) 0.2, Baso # (Auto) 0.0, Sodium 137, Potassium 4.0, Chloride 102, Carbon Dioxide 27, Anion Gap 12.0, BUN 13, Creatinine 0.70, Estimated Creat Clear 74, Estimated GFR 113, Est GFR ( Amer) 137, Glucose 100, Calcium 8.7, Magnesium 1.7 I & O for Last 24 hours: Intake & Output 11/23/24 11/24/24 11/25/24 11/26/24 23:59 23:59 23:59 23:59 Intake Total 1440 / 1440 960 / 1210 550 / 550 Output Total 2325 / 2325 900 / 900 650 / 650 Balance -885 / -885 60 / 310 -100 / -100 Weight 68.039 kg 74.435 kg 73.391 kg 71.758 kg Constitutional Constitutional: no acute distress *Routine HEENT Exam Head: Present normocephalic Eye: Present EOMI and PERRL ENT: Present mucous membranes moist *Routine Neck Exam Neck: Present supple; Absent lymphadenopathy *Routine Respiratory Exam Respiratory: Present CTA bilaterally *Routine Cardiovascular Exam Cardiovascular: Present RRR *Routine Abdominal Exam Abdominal: Present soft and normoactive bowel sounds; Absent tenderness *Routine Extremities Exam Extremities: Absent cyanosis, clubbing or edema *Routine Skin Exam Skin: Present warm; Absent rash *Routine Neurological Exam Neurological: Present alert and oriented X3 Results Data Completed and Pending Labs on day of discharge: Labs from last 24 hours 11/26/24 06:03 WBC 5.8 RBC 4.24 L Hgb 13.4 L Hct 38.9 L MCV 91.7 MCH 31.6 H MCHC 34.4 RDW 12.3 Plt Count 161 MPV 11.5 H Neut % (Auto) 53.9 Lymph % (Auto) 31.3 Alfalfa % (Auto) 10.3 H Eos % (Auto) 3.3 Baso % (Auto) 0.7 Neut # (Auto) 3.2 Lymph # (Auto) 1.8 Alfalfa # (Auto) 0.6 Eos # (Auto) 0.2 Baso # (Auto) 0.0 Sodium 137 Potassium 4.0 Chloride 102 Carbon Dioxide 27 Anion Gap 12.0 BUN 13 Creatinine 0.70 Estimated Creat Clear 74 Estimated GFR 113 Est GFR ( Amer) 137 Glucose 100 Calcium 8.7 Magnesium 1.7 DS: Diagnosis Discharge Diagnosis (1) Syncope: Status: Acute Code(s): R55 - Syncope and collapse Qualifiers: Syncope type: unspecified Qualified Code(s): R55 - Syncope and collapse (2) Creatinine elevation: Status: Acute (3) Symptomatic bradycardia: Status: Acute Code(s): R00.1 - Bradycardia, unspecified (4) Hypotension: Status: Acute Code(s): I95.9 - Hypotension, unspecified Qualifiers: Hypotension type: unspecified hypotension type Qualified Code(s): I95.9 - Hypotension, unspecified (5) CKD stage 3a, GFR 45-59 ml/min: Status: Acute Code(s): N18.31 - Chronic kidney disease, stage 3a (6) Hypertension: Status: Chronic Code(s): I10 - Essential (primary) hypertension Meds Home Medications and Allergies Home Medications ?Medication ?Instructions ?Recorded ?Confirmed ?Type amlodipine 10 mg tablet 10 mg PO DAILY 11/24/24 11/24/24 History losartan 100 mg tablet 100 mg PO DAILY 11/24/24 11/24/24 History terazosin 10 mg capsule 10 mg PO DAILY 11/24/24 11/24/24 History valacyclovir 1 gram tablet 1,000 mg PO DAILY 11/24/24 11/24/24 History folic acid 1 mg tablet 1 mg PO DAILY 30 days #30 tabs 11/26/24 Rx levothyroxine 25 mcg tablet 25 mcg PO DAILYDM 30 days #30 tabs 11/26/24 Rx (Synthroid) rosuvastatin 10 mg tablet 20 mg (2 x 10 mg) PO HS 30 days #0 11/26/24 11/24/24 Rx tabs New Prescriptions to Start Prescriptions: Tung Batista levothyroxine [Synthroid] Tung Leonard Allergies Allergy/AdvReac Type Severity Reaction Status Date / Time No Known Allergies Allergy Verified 11/23/24 22:12 Discharge Plan Disposition Patient Disposition: Home, Self-Care Condition: Fair Discharge Order Discharge Orders: Discharge Order (Routine); Ordered 11/26/24 Ordered By: Tung Leonard Follow up Plan Follow up with: Modesto Arteaga PA [Physician Medical Record Administrator] - 12/05/24 8:45 am Provider,MD Sharad [Primary Care Provider] - Enter time for follow up (please call for follow up appointment) Prescriptions/Medication Reconciliation: New levothyroxine [Synthroid] 25 mcg Tablet 25 mcg PO DAILYDM 30 Days Qty: 30 0RF folic acid 1 mg Tablet 1 mg PO DAILY 30 Days Qty: 30 0RF Continued valacyclovir 1 gram tablet 1,000 mg PO DAILY amlodipine 10 mg tablet 10 mg PO DAILY losartan 100 mg tablet 100 mg PO DAILY terazosin 10 mg capsule 10 mg PO DAILY Changed rosuvastatin 10 mg tablet 20 mg PO HS 30 Days Qty: 0 0RF Discontinued propranolol 60 mg capsule,extended release 24 hr 60 mg PO DAILY Problem Reconciliation Problems Reviewed?: Yes Patient Discharge Instructions Patient Instructions: DI for Syncope in Adults (Fainting), DI for Bradycardia Print Language: Czech Providers Primary Care Provider: Provider,Referral Admit Provider: Dariusz Schulte Attending Provider: Dariusz Schulte
[2024-11-26] MEDS: MULTIVITAMIN TABLET 1 EACH PO (16:16)
--- NOTE | 2024-11-27 10:23 | SW/DCPLANNER ---
Spoke with patient on the phone. Patient stated that he is doing well. Patient stated that he is aware of his upcoming appointments and that he has called his primary care provider and scheduled an appointment with them. Patient stated that he is picking up his new medicine today. Patient stated that he has no concerns or questions at this time. Vipul Culver
== END 2024-11-26 16:57 | disposition home or self-care (01) ==
LOC: ER 22:41 → 2ND 23:50
PROVIDERS: Nurse Practitioner Family; Student in an Organized Health Care Education/Training Program; Admitting Provider Internal Medicine Adolescent Medicine; Emergency Provider Emergency Medicine; Visit Provider Internal Medicine Adolescent Medicine
DX: R55 Syncope and collapse (principal); R00.1 Bradycardia, unspecified; I95.9 Hypotension, unspecified; N18.31 Chronic kidney disease, stage 3a; I10 Essential (primary) hypertension
CPT/HCPCS: 36415; 70450; 72125; 80048; 80053; 80061; 80307; 80320; 82607; 83036; 83735; 84439; 84443; 84484; 85025; 85610; 93005; 93270; 93306; 97162; 97165; 99291; G0378; J3475; J7120